=== PATIENT | female | born 1995 | race Caucasian/White ===

== ENCOUNTER 2017-02-22 11:37 | Outpatient (CLI) | payer OTHER | END 2017-02-22 17:00 | disposition home or self-care (01) | LOC: HPC 11:37 | DX: D24.2 Benign neoplasm of left breast (principal) | CPT/HCPCS: G0463 ==

== ENCOUNTER 2017-03-16 11:17 | Day surgery (SDC) | payer OTHER ==
[~2017-03-16 11:17] MED LIST: CEFAZOLIN 2 GM/50 ML (PMX) 50 ML IVPB; D5W-0.45 NACL + KCL 20 MEQ 1,000 ML IV
[2017-03-16] MEDS ORDERED: BUPIVACAINE 0.25%/EPI (SDV) 30 ML INJ (12:16)
[2017-03-16] MEDS ORDERED: MIDAZOLAM 1 MG/ML 2 ML INJ (12:41)
[2017-03-16] MEDS ORDERED: LIDOCAINE 2% (SDV) 5 ML INJ (12:45)
[2017-03-16] MEDS ORDERED: PROPOFOL 20 ML (12:45)
[2017-03-16] MEDS ORDERED: MEPERIDINE 100 MG INJ (12:46)
[2017-03-16] MEDS: BUPIVACAINE 0.5%/EPI (SDV) 30 ML INJ INJ (13:15)
[2017-03-16] MEDS ORDERED: ONDANSETRON 4 MG INJ (13:54)
[2017-03-16] MEDS ORDERED: METOCLOPRAMIDE 10 MG INJ (13:54)
[2017-03-16] MEDS ORDERED: BISACODYL 10 MG SUPP PR (14:30)
[2017-03-16] MEDS ORDERED: HYDROCODONE/APAP (5/325) TAB PO ×2 (14:30)
[2017-03-16] MEDS ORDERED: DOCUSATE SODIUM 100 MG CAP PO (14:30)
== END 2017-03-16 15:33 | disposition home or self-care (01) ==
LOC: SDS 11:17
DX: D24.2 Benign neoplasm of left breast (principal)
CPT/HCPCS: 19301; 84703

== ENCOUNTER 2017-04-07 13:13 | Outpatient (CLI) | payer OTHER | END 2017-04-07 15:44 | disposition home or self-care (01) | LOC: HPC 13:13 | DX: Z09 Encounter for follow-up examination after completed treatment for conditions other than malignant neoplasm (principal); N63.0 Unspecified lump in unspecified breast | CPT/HCPCS: G0463 ==

== ENCOUNTER 2017-05-05 13:21 | Outpatient (CLI) | payer OTHER | END 2017-05-05 15:48 | disposition home or self-care (01) | LOC: HPC 13:21 | DX: Z09 Encounter for follow-up examination after completed treatment for conditions other than malignant neoplasm (principal); N64.9 Disorder of breast, unspecified | CPT/HCPCS: G0463 ==